=== PATIENT | male | born 1955 ===

== ENCOUNTER 2022-01-13 12:06 | Outpatient (CLI) | payer MEDICARE, OTHER ==
--- NOTE | 2022-01-13 15:00 | Ultrasound Report ---
PROCEDURE: Bladder INDICATIONS: BLADDER OUTLET OBSTRUCTION TECHNIQUE: Real-time scanning was performed of the kidneys and bladder, with image documentation. COMPARISON: None FINDINGS: Prevoid volume is 150 cc. Postvoid volume is 73 cc. Prostatomegaly 6 x 4.9 x 5.5 cm (total volume of 85 cc). Both ureteral jets were visualized. IMPRESSION: Post void residual 73 cc. Prostatomegaly. Reviewed by: Vick Grimm MD on 01/13/2022 2:59 PM PDT Approved by: Vick Grimm MD on 01/13/2022 2:59 PM PDT Station ID: [id number]
== END 2022-01-13 12:07 | disposition home or self-care (01) ==
LOC: DI 12:06
PROVIDERS: ATTEND Internal Medicine
DX: N40.0 Benign prostatic hyperplasia without lower urinary tract symptoms (principal)

== ENCOUNTER 2023-05-21 08:37 | Outpatient (CLI) | payer MEDICARE, OTHER ==
--- NOTE | 2023-05-21 12:28 | Ultrasound Report ---
PROCEDURE: Aorta Screening INDICATIONS: AAA SCREENING TECHNIQUE: Real time scanning was performed of the aorta and iliac arteries, with image documentatio n. COMPARISON: None. FINDINGS: Aorta: Proximal aortic diameter measures 2.4 x 2.2 cm. Mid-aorta measures 1.8 x 1.9 cm. Distal aor tic diameter is 1.7 x 1.7 cm. Iliac arteries: Right common iliac artery measures 1.2 x 1.2 cm. Left common iliac artery measures 1.2 x 1.2 cm. IMPRESSION: No evidence of abdominal aortic aneurysm. No further follow-up suggested. Recommended intervals for follow-up imaging of ectatic aortas and abdominal aortic aneurysms, per ACR consensus guidelines: 2.5-2.9 cm: 5 years 3.0-3.4 cm: 3 years 3.5-3.9 cm: 2 years 4.0-4.4 cm: 1 year 4.5-4.9 cm: 6 months + endovascular referral 5.0-5.5 cm: 3-6 months + endovascular referral Reviewed by: Zan Huitron MD on 05/21/2023 12:27 PM PST Approved by: Zan Huitron MD on 05/21/2023 12:27 PM PST Station ID: [id number]
== END 2023-05-21 08:38 | disposition home or self-care (01) ==
LOC: DI 08:37
PROVIDERS: ATTEND Nurse Practitioner Family
DX: Z13.6 Encounter for screening for cardiovascular disorders (principal)